=== PATIENT | female | born 1960 | race Caucasian/White ===

== ENCOUNTER 2022-03-13 00:46 | Emergency (ER) | payer SELFPAY ==
[~2022-03-13 00:46] MED LIST: CIPRO500 MG PO; MULTIPLE VITAMI1 TA5 PO; ULTRAM50 MG PO
== END 2022-03-13 01:50 | disposition left against medical advice (07) ==
LOC: ED 00:46
DX: Z53.21 Procedure and treatment not carried out due to patient leaving prior to being seen by health care provider (principal)